=== PATIENT | male | born 1990 | race Caucasian/White ===

== ENCOUNTER 2025-01-10 13:53 | Emergency (ER) | payer OTHER, SELFPAY ==
[2025-01-10 13:54] VITALS: BP 161/106
--- NOTE | 2025-01-10 14:29 | ED.GENMED ---
ED Provider Triage
<Rom Toth MD, Resident - Last Filed: 01/10/25 15:00>
-
Patient seen by provider in Triage?: Seen in Triage
History of Present Illness
<Rom Toth MD, Resident - Last Filed: 01/10/25 15:00>
General
Chief Complaint: Abdominal Pain
Source: patient
Exam Limitations: none
Time Seen by Provider: 01/10/25 14:03
History of Present Illness
History of Present Illness:
34-year-old male who presents because for the past 2 weeks he has gotten progressively worse mild left inguinal abdominal pain. The pain gets worse on exertion, weight lifting, lying in a fully extended position. There are no relieving factors.
Patient was seen at urgent care where they could not figure out what the cause of the pain was and so then he came here. Also complaining of constipation. No fever, abdominal pain, chills, nausea, vomiting, diarrhea, weight loss. No previous
history of hernia.
Past History
<Rom Toth MD, Resident - Last Filed: 01/10/25 15:00>
Past History
ED Past Medical History: None
ED Past Surgical History: None
Review of Systems
<Rom Toth MD, Resident - Last Filed: 01/10/25 15:00>
Review of Systems
All Other Systems: ROS reviewed and negative except as documented in HPI and ROS
Phy Exam
<Rom Toth MD, Resident - Last Filed: 01/10/25 15:00>
General Physical Exam
General Presentation: well appearing and no apparent distress
General Skin: warm
General Habitus: normal
General Mental: alert
Cardiovascular Exam
Cardiovascular Exam: regular rate/rhythm and no edema
Pulmonary Exam
Pulmonary Exam: lungs clear and no respiratory distress
Gastrointestinal Exam
Gastrointestinal Exam: normal bowel sounds, soft, non distended, no abdominal hernia, no inguinal hernia, no masses and tender (mild tenderness on palpation of the left inguinal region)
Neurological Exam
Neurological Exam: alert and oriented x3
Musculoskeletal Exam
Musculoskeletal Exam: full ROM
Skin Exam
Skin Exam: normal color, warm/dry and no rash
Course
<Rom Toth MD, Resident - Last Filed: 01/10/25 15:00>
Orders/Labs/Results
Orders:
Orders
01/10/25 14:34
Ibuprofen [Motrin] 600 mg PO NOW STA
Vital Signs
Initial and Last Documented VS:
Initial Vital Signs
Temp Pulse Resp BP Pulse Ox
98.0 F 95 20 161/106 99
01/10/25 13:54 01/10/25 13:54 01/10/25 13:54 01/10/25 13:54 01/10/25 13:54
Last Documented Vital Signs
Temp Pulse Resp BP Pulse Ox
98.0 F 80 16 139/83 99
01/10/25 13:54 01/10/25 15:01 01/10/25 15:01 01/10/25 15:01 01/10/25 15:01
<Nadir Robertson DO - Last Filed: 01/10/25 20:10>
Orders/Labs/Results
Orders:
Orders
01/10/25 14:34
Ibuprofen [Motrin] 600 mg PO NOW STA
Vital Signs
Initial and Last Documented VS:
Initial Vital Signs
Temp Pulse Resp BP Pulse Ox
98.0 F 95 20 161/106 99
01/10/25 13:54 01/10/25 13:54 01/10/25 13:54 01/10/25 13:54 01/10/25 13:54
Last Documented Vital Signs
Temp Pulse Resp BP Pulse Ox
98.0 F 80 16 139/83 99
01/10/25 13:54 01/10/25 15:01 01/10/25 15:01 01/10/25 15:01 01/10/25 15:01
<Rom Toth MD, Resident - Last Filed: 01/10/25 15:00>
MDM/Problems Addressed
Differential Diagnosis Includes:
inguinal hernia, adductor muscle strain, testicular strain, lymphadenopathy, hip osteoarthritis
MDM/Problems Addressed:
- Vitals normal and afebrile
- Physical exam of the abdomen/ inguinal area is normal
- Will discharge patient home with instructions to f/u with sports medicine.
<Rom Toth MD, Resident - Last Filed: 01/10/25 15:00>
*Pulse Oximetry
SaO2: 99
Oxygen Mode of Delivery: Room air
Patient hypoxic: no
*Critical Care Note
Total Time (30-74mins, 75-104mins- exclusive of procedures): Not Applicable
ED Attending Note
<Rom Toth MD, Resident - Last Filed: 01/10/25 15:00>
-
Portions of this chart may have been created with voice recognition software.� Occasional wrong word or��sound alike� substitutions may have occurred due to the inherent limitations of voice recognition software.
<Nadir Robertson, - Last Filed: 01/10/25 20:10>
ED Attending Note
Patient seen and examined by attending physician: Yes
I performed a history and physical exam of patient and discussed management with resident, I reviewed resident's note and agree with documented findings and plan of care.: Yes
ED Attending Note:
Patient presents complaining of pain in his left groin.
Scrotal exam reveals no scrotal abnormality, no inguinal hernia noted he does have tenderness palpation of the internal inguinal ring. I do not feel any bulge with coughing.
No evidence for a significant hernia or an incarcerated hernia. From an emergency room standpoint patient stable for discharge. Recommend follow-up with sports medicine as I suspect this is more of a groin tear or strain
Discharge Plan
Departure
Patient Disposition: Home (Routine Discharge)
Date of Disposition: 01/10/25
Time of Disposition: 14:45
Patient with high blood pressure during this ER visit?: Yes
Condition: Good
Discharge Problem:
Groin strain
Instructions: Groin Strain (DC), BLOOD PRESSURE
Prescriptions:
New
ibuprofen [Motrin IB] 200 mg capsule
400 mg PO Q8H PRN (Reason: Pain) Qty: 30 0RF
Referrals:
Gerhard Valles, DO [Non-Admitting Privileges, Orthopedics] - Follow up in 5-7 days
Activity Restrictions/Additional Instructions:
Please follow up with sports medicine in 5-7 days.
1. Please schedule a follow up appointment as directed. Call first thing tomorrow morning to make an appointment.
2. If indicated, please take your medications as instructed and indicated on discharge paperwork.
3. If any of your symptoms do not improve, or persist, or become more severe within 6-12 hours, please return to the emergency department for further care.
4. Please return to the emergency department if you develop a headache, neck pain/stiffness, fever greater than 100.4F, chest pain, shortness of breath, persistent nausea, vomiting, slurred speech, difficulty walking, numbness/tingling, weakness,
signs of infection or any other symptoms that are worrisome to you.
Please call [phone] if you have any questions
Interventions
Interventions:
*Risk Screen - Suicide Last Done: 01/10/25 13:54
*General Assessment Last Done: 01/10/25 15:01
*Neglect/Abuse Screening Last Done: 01/10/25 15:01
*ED- Fall Risk Assessment Last Done: 01/10/25 14:16
*ED COVID-19 Vaccine History Last Done: 01/10/25 14:16
*ED Influenza Vaccine History Last Done: 01/10/25 14:16
*Nursing Disposition Last Done: 01/10/25 15:01
ER-Damidu-Oubnvcfokp Assessment Last Done: 01/10/25 15:01
Discharge Date and Time
Discharge Date/Time: 01/10/25 15:17
Print Language: NIUEAN
[2025-01-10] MEDS: MOTRIN 600 MG PO (14:59)
[2025-01-10 15:01] VITALS: BP 139/83
== END 2025-01-10 15:17 | disposition home or self-care (01) ==
LOC: EMR 13:53
PROVIDERS: EMERGENCY PHYSICIAN Emergency Medicine
DX: S39.011A Strain of muscle, fascia and tendon of abdomen, initial encounter (principal); X58.XXXA Exposure to other specified factors, initial encounter; R03.0 Elevated blood-pressure reading, without diagnosis of hypertension
CPT/HCPCS: 99283